=== PATIENT | male | born 1950 | race Caucasian/White ===

== ENCOUNTER → 2016-10-27 | Outpatient (CLI) | payer OTHER ==
[~2016-10-27] MED LIST: ALLOPURINOL100 MG PO; ASP PO; ASPIR 8181 M1 PO; BENICAR40 MG PO; COMBIVENT200 INHALA IH; CRESTOR10 MG PO; DILTIAZEM ER60 MG PO; FLECAINIDE ACE100 M1 PO; FLOMAX0.4 MG PO; HYDROCHLOROTHIA25 MG PO; K-DUR10 MEQ PO; K-DUR20 MEQ PO; LASIX40 MG PO; LASIX80 MG PO; NAPROSYN500 MG PO; NORCO 5/3251 TABLET PO; PRAVACHOL40 MG PO; PROSCAR5 MG PO; SOTALOL80 MG PO; TAMBOCOR100 MG PO
== END | disposition home or self-care (01) ==
DX: M17.12 Unilateral primary osteoarthritis, left knee (principal); M25.562 Pain in left knee; Z74.1 Need for assistance with personal care
CPT/HCPCS: 97110 GP; 97150 GO; 97161 GP; 97165 GO

== ENCOUNTER 2016-11-30 08:59 | Inpatient (IN) | payer OTHER ==
[~2016-11-30] VITALS: Ht 175.3 cm; Wt 124.5 kg
[~2016-11-30 08:59] MED LIST changes: +ALLOPURINOL300 MG PO; +COMBIVENT RESPIM4 GM IH; +FERROUS SULFAT325 MG PO; +FLECAINIDE ACE100 MG PO; +HYDRALAZINE HCL25 MG PO; +MELOXICAM7.5 MG PO
[2016-11-30 09:34] VITALS: BP 129/69
[2016-11-30] MEDS ORDERED: MELOXICAM7.5 MG PO (09:34)
[2016-11-30 13:51] LABS: HEMATOCRIT 36.3 % (38.0-50.0); MCHC 33.1 G/DL (30.0-36.0); MCV 96.8 FL (86-99); MEAN PLAT.VOLUME 11.8 uM^3 (9.0-12.4); PLATELET COUNT 157 K/uL (156-360); RBC DIS.WIDTH-CV 14.4 % (11.8-14.6); RBC DIS.WIDTH-SD 50.5 % (39-53); RED BLOOD COUNT 3.75 M/uL (4.00-5.50); WHITE BLOOD COUNT 6.5 K/uL (4.1-10.2)
[2016-11-30 14:53] VITALS: BP 146/67
[2016-11-30 19:32] VITALS: BP 140/67
[2016-12-01 00:10] VITALS: BP 155/75
[2016-12-01 04:14] VITALS: BP 154/74
[2016-12-01 06:32] LABS: HEMATOCRIT 35.6 % (38.0-50.0); MCV 93.7 FL (86-99)
[2016-12-01 07:21] LABS: ANION GAP 11 MEQ/L (2-14); CHLORIDE 104 MEQ/L (99-109); GFR ESTIMATE (CALCULATED) > 59 mL/min/; GLUCOSE 137 mg/dL (70-99); POTASSIUM 4.1 MEQ/L (3.7-5.4); SAMPLE HEMOLYSIS CHECK 0; SAMPLE ICTERIC CHECK 0; SAMPLE LIPEMIA CHECK 0; SODIUM 138 MEQ/L (136-147); UREA NITROGEN (BUN) 16 mg/dL (9-23)
[2016-12-01 08:36] VITALS: BP 166/72
[2016-12-01 11:33] VITALS: BP 157/71
[2016-12-01 15:44] VITALS: BP 148/70
[2016-12-01 20:01] VITALS: BP 154/74
[2016-12-02 00:12] VITALS: BP 132/63
[2016-12-02 04:06] VITALS: BP 125/58
[2016-12-02 05:53] LABS: HEMATOCRIT 32.7 % (38.0-50.0); MCV 95.1 FL (86-99)
[2016-12-02 06:17] LABS: ANION GAP 7 MEQ/L (2-14); CHLORIDE 103 MEQ/L (99-109); GFR ESTIMATE (CALCULATED) > 59 mL/min/; GLUCOSE 123 mg/dL (70-99); POTASSIUM 3.8 MEQ/L (3.7-5.4); SAMPLE HEMOLYSIS CHECK 0; SAMPLE ICTERIC CHECK 0; SAMPLE LIPEMIA CHECK 0; SODIUM 135 MEQ/L (136-147); UREA NITROGEN (BUN) 15 mg/dL (9-23)
[2016-12-02] MEDS ORDERED: ENDOCET 5-3251 EACH PO (07:56)
[2016-12-02] MEDS ORDERED: CELECOXIB200 MG PO (07:56)
[2016-12-02] MEDS ORDERED: LOVENOX40 MG/0.4 SC (07:56)
[2016-12-02] MEDS ORDERED: DOCUSATE SODIU100 MG PO (07:56)
[2016-12-02 08:00] VITALS: BP 129/60
[2016-12-02 12:18] VITALS: BP 143/72
[2016-12-02 16:00] VITALS: BP 147/80
== END 2016-12-02 16:28 | DRG 470 ==
LOC: 2SOUTH 08:59 → 3WEST 14:38
PROVIDERS: Orthopaedic Surgery; Physician Assistant
PROC: 0SRD0J9 Replacement of Left Knee Joint with Synthetic Substitute, Cemented, Open Approach (ICD-10-PCS; principal; 2016-11-30)
DX: M17.12 Unilateral primary osteoarthritis, left knee (principal); Z68.41 Body mass index [BMI] 40.0-44.9, adult; E66.9 Obesity, unspecified; I10 Essential (primary) hypertension; I48.2 Chronic atrial fibrillation; M10.9 Gout, unspecified; J45.909 Unspecified asthma, uncomplicated; N40.0 Benign prostatic hyperplasia without lower urinary tract symptoms; J44.9 Chronic obstructive pulmonary disease, unspecified; E78.5 Hyperlipidemia, unspecified; G47.00 Insomnia, unspecified; M54.30 Sciatica, unspecified side; G47.30 Sleep apnea, unspecified; Z87.891 Personal history of nicotine dependence; Z87.01 Personal history of pneumonia (recurrent); Z88.0 Allergy status to penicillin; Z82.49 Family history of ischemic heart disease and other diseases of the circulatory system
CPT/HCPCS: 73560; 76937; 80048; 85014; 85018; 85027; 94640; 94660; 99202; C1713; C1753; J1100; J1170; J1650; J2250; J2405; J3010; J7030; J7050

== ENCOUNTER 2017-01-18 15:42 | Emergency (ER) | payer OTHER ==
[~2017-01-18] VITALS: Ht 175.3 cm; Wt 122.8 kg
[~2017-01-18 15:42] MED LIST changes: +CELECOXIB200 MG PO; +DOCUSATE SODIU100 MG PO; +ENDOCET 5-3251 EACH PO; +LOVENOX40 MG/0.4 SC
[2017-01-18] MEDS ORDERED: ZITHROMAX500 MG PO (16:19)
[2017-01-18 16:30] VITALS: BP 126/67
== END 2017-01-18 16:30 | disposition home or self-care (01) ==
LOC: EME 15:42
PROC: 3E0234Z Introduction of Serum, Toxoid and Vaccine into Muscle, Percutaneous Approach (ICD-10-PCS; principal; 2017-01-18)
DX: S81.852A Open bite, left lower leg, initial encounter (principal); W54.0XXA Bitten by dog, initial encounter; Z88.0 Allergy status to penicillin; Z96.652 Presence of left artificial knee joint; Z23 Encounter for immunization
CPT/HCPCS: 99281; 99284

== ENCOUNTER → 2017-07-28 | Outpatient (CLI) | payer OTHER ==
[~2017-07-28] MED LIST changes: +ZITHROMAX500 MG PO
== END | disposition home or self-care (01) ==
LOC: NUC 09:34
DX: M17.11 Unilateral primary osteoarthritis, right knee (principal); M19.072 Primary osteoarthritis, left ankle and foot; M19.071 Primary osteoarthritis, right ankle and foot; R93.7 Abnormal findings on diagnostic imaging of other parts of musculoskeletal system; Z96.652 Presence of left artificial knee joint
CPT/HCPCS: 78315; A9503

== ENCOUNTER 2017-10-17 21:02 | Inpatient (IN) | payer OTHER ==
[~2017-10-17] VITALS: Ht 175.3 cm; Wt 140.2 kg
[~2017-10-17 21:02] MED LIST changes: +CELEBREX100 MG PO; +POTASSIUM CHLO20 ME2 PO
[2017-10-18 12:28] VITALS: BP 139/69
[2017-10-18 17:42] LABS: HEMATOCRIT 40.2 % (38.0-50.0); HEMOGLOBIN 13.1 G/DL (12.5-16.6); MCHC 32.6 G/DL (30.0-36.0); PLATELET COUNT 178 K/uL (156-360); RBC DIS.WIDTH-CV 14.2 % (11.8-14.6); RBC DIS.WIDTH-SD 49.4 % (39-53); RED BLOOD COUNT 4.23 M/uL (4.00-5.50); WHITE BLOOD COUNT 7.2 K/uL (4.1-10.2)
[2017-10-18 18:19] VITALS: BP 138/66
[2017-10-18 20:52] VITALS: BP 124/58
[2017-10-19 00:03] VITALS: BP 123/58
[2017-10-19 04:20] VITALS: BP 124/62; BP 145/84
[2017-10-19 06:21] LABS: HEMATOCRIT 40.7 % (38.0-50.0); MCV 96.7 FL (86-99)
[2017-10-19 06:46] LABS: CHLORIDE 108 MEQ/L (99-109); CREATININE 1.2 MG/DL (0.6-1.3); GFR ESTIMATE (CALCULATED) > 59 mL/min/ (58.99-99999); GLUCOSE 113 mg/dL (70-99); POTASSIUM 4.9 MEQ/L (3.7-5.4); SODIUM 140 MEQ/L (136-147); UREA NITROGEN (BUN) 16 mg/dL (9-23)
[2017-10-19 08:20] VITALS: BP 134/64
[2017-10-19 12:13] VITALS: BP 120/57
[2017-10-19 16:01] VITALS: BP 143/81
[2017-10-19 20:00] VITALS: BP 155/76
[2017-10-20 00:08] VITALS: BP 147/71
[2017-10-20 04:20] VITALS: BP 138/65
[2017-10-20 08:00] VITALS: BP 141/67
[2017-10-20 09:30] LABS: HEMATOCRIT 35.1 % (38.0-50.0); HEMOGLOBIN 11.5 G/DL (12.5-16.6); MCV 95.6 FL (86-99)
[2017-10-20 12:00] VITALS: BP 140/71
[2017-10-20 15:48] VITALS: BP 134/72
[2017-10-20] MEDS ORDERED: CIPRO500 MG PO (17:22)
[2017-10-20 20:19] VITALS: BP 144/59
[2017-10-21] VITALS (7 sets, daily range): BP systolic 124–160; BP diastolic 66–85
[2017-10-21] MEDS ORDERED: LOVENOX40 MG/0.4 SC (08:42)
[2017-10-21] MEDS ORDERED: ENDOCET 5-3251 EACH PO (08:42)
[2017-10-21] MEDS ORDERED: SENNA PLUS TAB1 EACH PO (08:42)
[2017-10-22 00:41] VITALS: BP 154/80
[2017-10-22 08:38] VITALS: BP 141/86
== END 2017-10-22 14:33 | disposition home health service (06) | DRG 464 ==
LOC: ENRESERV 21:02 → 2SOUTH 10-18 08:25 → 3WEST 10-18 11:07 → 2SOUTH 10-18 11:54 → 3WEST 10-18 18:03 → ENRESERV 10-21 16:03 → 3EAST 10-21 17:50
PROVIDERS: Orthopaedic Surgery
DX: T84.54XA Infection and inflammatory reaction due to internal left knee prosthesis, initial encounter (principal); M86.162 Other acute osteomyelitis, left tibia and fibula; T84.033A Mechanical loosening of internal left knee prosthetic joint, initial encounter; Y83.1 Surgical operation with implant of artificial internal device as the cause of abnormal reaction of the patient, or of later complication, without mention of misadventure at the time of the procedure; Z86.14 Personal history of Methicillin resistant Staphylococcus aureus infection; J44.9 Chronic obstructive pulmonary disease, unspecified; R11.2 Nausea with vomiting, unspecified; G47.33 Obstructive sleep apnea (adult) (pediatric); E66.01 Morbid (severe) obesity due to excess calories; Z68.41 Body mass index [BMI] 40.0-44.9, adult; E78.5 Hyperlipidemia, unspecified; J45.20 Mild intermittent asthma, uncomplicated; I35.0 Nonrheumatic aortic (valve) stenosis; I10 Essential (primary) hypertension; M19.90 Unspecified osteoarthritis, unspecified site; N40.0 Benign prostatic hyperplasia without lower urinary tract symptoms; M10.9 Gout, unspecified; M54.30 Sciatica, unspecified side; R60.0 Localized edema; Z87.442 Personal history of urinary calculi; Z87.891 Personal history of nicotine dependence
CPT/HCPCS: 36415; 73560; 76937; 80048; 80202; 85014; 85018; 85025; 85027; 85610; 85730; 86140; 86850; 86900; 86901; 87070; 87075; 87205; 87641; 99202; C1713; J1650; J2250; J2405; J2543; J3010; J3370; J7030; J7050

== ENCOUNTER 2018-01-23 22:45 | Inpatient (IN) | payer OTHER ==
[~2018-01-23] VITALS: Ht 172.7 cm; Wt 134.0 kg
[~2018-01-23 22:45] MED LIST changes: +ANORO ELLIPTA1 EACH IH; +CIPRO500 MG PO; +PROAIR HFA8.5 GM IH; +SENNA PLUS TAB1 EACH PO
[2018-01-24] MEDS ORDERED: ASPIRIN81 M2 PO (07:29)
[2018-01-24 07:34] VITALS: BP 163/81
[2018-01-24 12:33] LABS: HEMATOCRIT 35.9 % (38.0-50.0); HEMOGLOBIN 11.7 G/DL (12.5-16.6); MCH 30.1 PG (29.0-34.0); MCHC 32.6 G/DL (30.0-36.0); MCV 92.3 FL (86-99); PLATELET COUNT 185 K/uL (156-360); RBC DIS.WIDTH-SD 50.4 % (39-53); RED BLOOD COUNT 3.89 M/uL (4.00-5.50); WHITE BLOOD COUNT 6.3 K/uL (4.1-10.2)
[2018-01-24 13:47] VITALS: BP 136/67
[2018-01-24 15:31] VITALS: BP 141/68
[2018-01-24 19:52] VITALS: BP 128/63
[2018-01-24 23:30] VITALS: BP 108/57
[2018-01-25 04:30] VITALS: BP 123/61
[2018-01-25 06:23] LABS: HEMATOCRIT 32.2 % (38.0-50.0); HEMOGLOBIN 10.6 G/DL (12.5-16.6)
[2018-01-25 06:46] LABS: CHLORIDE 105 MEQ/L (99-109); CREATININE 1.3 MG/DL (0.6-1.3); GFR ESTIMATE (CALCULATED) 59 mL/min/ (58.99-99999); GLUCOSE 116 mg/dL (70-99); POTASSIUM 4.3 MEQ/L (3.7-5.4); SODIUM 137 MEQ/L (136-147); UREA NITROGEN (BUN) 20 mg/dL (9-23)
[2018-01-25 07:52] VITALS: BP 130/58
[2018-01-25 11:29] VITALS: BP 137/67
[2018-01-25 15:44] VITALS: BP 140/80
[2018-01-25 20:08] VITALS: BP 147/67
[2018-01-26 00:20] VITALS: BP 170/82
[2018-01-26 03:50] VITALS: BP 136/68
[2018-01-26 06:25] LABS: HEMATOCRIT 31.4 % (38.0-50.0); HEMOGLOBIN 10.7 G/DL (12.5-16.6)
[2018-01-26 08:00] VITALS: BP 151/64
[2018-01-26] MEDS ORDERED: SENNA PLUS TAB1 EACH PO (08:30)
[2018-01-26] MEDS ORDERED: LOVENOX40 MG/0.4 SC (08:33)
[2018-01-26] MEDS ORDERED: ENDOCET 5-3251 EACH PO (08:33)
[2018-01-26 12:04] VITALS: BP 124/58
== END 2018-01-26 13:37 | DRG 941 ==
LOC: ENRESERV 22:45 → 3WEST 01-24 06:54 → 2SOUTH 01-24 06:54 → 3WEST 01-24 13:28 → 2SOUTH 01-24 16:06 → 3WEST 01-26 13:37
PROVIDERS: Orthopaedic Surgery
DX: T84.54XD Infection and inflammatory reaction due to internal left knee prosthesis, subsequent encounter (principal); J45.909 Unspecified asthma, uncomplicated; I10 Essential (primary) hypertension; M54.30 Sciatica, unspecified side; M19.90 Unspecified osteoarthritis, unspecified site; Z87.891 Personal history of nicotine dependence; Z87.442 Personal history of urinary calculi
CPT/HCPCS: 36415; 73560; 80048; 80053; 85014; 85018; 85025; 85027; 85610; 85730; 86850; 86900; 86901; 87641; 88305; 88331; 88332; 94640; 94799; C1713; C1776; J1650; J2250; J2405; J2765; J2795; J7030; S0020